=== PATIENT | male | born 1960 | race Caucasian/White ===

== ENCOUNTER → 2022-09-25 07:52 | Outpatient (REF) | payer OTHER, SELFPAY ==
--- NOTE | 2022-09-25 08:01 | CA_ITS ---
Transthoracic Echocardiogram Patient (Last, First, Middle): Maximus Hansen, Gender: Male Date of : 1960 Age: 61 Procedure Date: 09/25/2022 Procedure Type: Transthoracic Echocardiogram Location: [facility] Height: 177.8 cm Weight: 77.11 kg BSA: 1.95 m2 Heart Rate: bpm [employer]ola Repairer: Referring MD: Supa Reyes MD Symptoms: VIRAL CARDIOMYOPATHY B33.24 Study Quality: Good ECG Rhythm: Sinus Conclusions: - The left ventricular systolic function is normal. The calculated ejection fraction is 55% by biplane method. - The basal inferior segment is hypokinetic. - Moderately increased right ventricular cavity size. - No obvious valvular pathology seen on this study. Findings Left Ventricle Normal left ventricular cavity size. The left ventricular systolic function is normal. The calculated ejection fraction is 55% by biplane method. Diastolic function is normal for age. There is mild septal asymmetric hypertrophy. Wall Motion Rest Echo Findings The basal inferior segment is hypokinetic. Right Ventricle Moderately increased right ventricular cavity size. There is normal right ventricular systolic function. RV basal diameter 5.2cm. Atria Both atria are normal in size. Aortic Valve There is a normal trileaflet aortic valve. There is no aortic valve stenosis. There is no aortic valve regurgitation. Mitral Valve The mitral valve appears normal. There is no mitral valve regurgitation. There is no mitral valve stenosis. Pulmonic Valve The pulmonic valve is likely normal. Tricuspid Valve There is trace tricuspid valve regurgitation. There is no evidence of pulmonary hypertension. Great Vessels The asc aorta is normal in size. Venous The inferior vena cava is normal in size and collapses greater than 50% with inspiration. Pericardium/Pleural There is no evidence of pericardial effusion. Prior Study Comparison No prior study available for comparison. Recommendations, Care & Conclusions No obvious valvular pathology seen on this study. Measurements 2D Linear Measurements IVSd: 1.04 0.6-0.9/0.6-1.0 cm LVIDd: 5.07 3.9-5.3/4.2-5.9 cm LVIDd Index: 2.60 2.4-3.2/2.2-3.1 cm/m2 LVIDs: 3.23 2.0-3.6 cm LVPWd: 0.99 0.7-1.1 cm Ao Root: 3.70 2.1-3.5 cm LA Diam: 3.40 2.7-3.8/3.0-4.0 cm LAIDs Index: 1.74 1.5-2.3 cm/m2 LV Mass: 237.32 67-162/88-224 g LV Mass Index: 121.70 43-95/49-115 g/m2 LVOT Diam: 2.40 3.0+(-)1.3 cm 2D Systolic Function EF 4C: 53.50 >55% EF 2C: 59.20 >55% EF BiP: 54.50 >55% Mitral Valve MV Pk E: 0.57 MV PK A: 0.42 MV Decel Time: 327.00 E/A: 1.30 E'Lateral: 9.25 E'Medial: 6.85 E/E' Med: 8.30 E/E' Lat: 6.20 PHT: 96.00 MVA PHT: 2.29 Decel Moffat: 1.74 Aortic Valve AoV Pk Mars: 1.09 AoV Mn Mars: 0.71 AoV VTI: 0.27 AoV Pk Grad: 5.00 Aov Mn Grad: 2.00 ELISABETH Cont.VTI: 3.03 LVOT LVOT Pk Mars: 0.72 LVOT Mn Mars: 0.49 LVOT VTI: 0.18 LVOT Pk Grad: 2.00 LVOT Mn Grad: 1.00 LVOT Diam: 2.40 LVOT Area: 4.52 Diastolic Function MV Pk E: 0.57 MV Pk A: 0.42 E/A: 1.30 E'Medial: 6.85 E/E' Med: 8.30 E' Laterial: 9.25 E/E' Lat: 6.20 Right Ventricle TAPSE (mm): 22.00 TVS' Mars: 14.00 Tricuspid Valve TR Pk Mars: 1.65 TR Pk Grad: 11.00 RA Press: 3.00 RVSP: 14.00 Great Vessels Aorta Ao Root-2D: 3.70 2.0-3.7 cm Sinus of Valsalva: 3.70 2.0-3.5 cm Ao Asc: 3.30 2.1-3.4 cm Pulmonary Valve PV Pk Mars: 0.88 Peak PV Grad: 3.00 Updated in Other Vendor System with Status of Final Kirill Guevara MD electronically signed on 09/25/2022 12:17:30 PM with status of Final
== END ==
LOC: HO.CARD 07:52
PROVIDERS: Visit Provider Internal Medicine Cardiovascular Disease
DX: B33.24 Viral cardiomyopathy (principal)
CPT/HCPCS: 93306